=== PATIENT | male | born 1985 | race Caucasian/White ===

== ENCOUNTER 2023-04-11 07:58 | Emergency (ER) | payer SELFPAY ==
[2023-04-11] MEDS ORDERED: predniSONE 10 MG TAB ONE (08:36)
[2023-04-11] MEDS ORDERED: predniSONE 20 MG TAB ONE (08:36)
[2023-04-11] MEDS ORDERED: Ipratropium/Albuterol 3 ML NEB ONE (08:36)
== END 2023-04-11 09:17 | disposition home or self-care (01) ==
LOC: MADERS 07:58
DX: J45.901 Unspecified asthma with (acute) exacerbation (principal)
CPT/HCPCS: 87804; 99283; J7512; J7620